=== PATIENT | female | born 1975 | race Caucasian/White ===

== ENCOUNTER → 2016-07-29 | Outpatient (CLI) | payer OTHER ==
[~2016-07-29] MED LIST: METH0.2T39 PO; MTRUNK; PRENTAB26 PO; TYLUNK
--- NOTE | 2016-07-29 16:36 | MAMMOGRAPHY REPORT ---
BILATERAL DIGITAL DIAGNOSTIC MAMMOGRAM TOMOSYNTHESIS WITH CAD AND TARGETED RIGHT ULTRASOUND: 07/29/19 17 CLINICAL HISTORY: 40-year-old woman with a family history of breast cancer = mother and aunts in the ir 30s and 40s who presents for annual bilateral screening mammography. Patient has history of 2 pr ior benign biopsies in the left breast. TECHNIQUE: Bilateral breast tomosynthesis in addition to standard 2D mammography was performed. Curr ent study was also evaluated with a Computer Aided Detection (CAD) system. COMPARISON: Comparison is made to exams dated: 03/26/2016 mammogram, 07/16/2015 mammogram, 5 ultrasound, 07/24/2014 ultrasound, and 07/24/2014 mammogram - [facility]. BREAST COMPOSITION: The tissue of both breasts is extremely dense, which lowers the sensitivity of mammography. FINDINGS: There are 2 stable ribbon shaped metallic biopsy markers in the left breast denoting the previous benign biopsies. No obvious new mass, architectural distortion or cluster of new suspiciou s calcifications are seen bilaterally. Repeat targeted ultrasound was performed in the 3:00, 8:00 and 10:00/10:30 axes of the right breast to reevaluate the probably benign complicated cysts versus benign solid masses. In the 8:00 right b reast, 1 cm from the nipple, there is a parallel hypoechoic lobulated solid versus cystic mass measu ring 2.5 x 1.8 x 3.6 mm. Previous measurements were 4.2 x 2.0 x 4.2 mm and this is slightly decreas ed in size. In the 10:30 right breast, 2 cm from the nipple, there are grouped cyst with thin inter nal nonvascular septations measuring approximately 9.3 x 3.2 x 27.4 mm in conglomerate. Another com plicated cyst with several internal nonvascular septations is seen in the 10:30 right breast, 1 cm f rom the nipple, measuring 9.8 x 3.1 x 11.3 mm. This is stable compared to the prior ultrasound. A small ovoid parallel isoechoic subdermal solid-appearing mass in the 3:00 right breast, 1 cm from th e nipple is again identified, measuring 3.8 x 1.6 x 3.5 mm. Previous measurements were 3.6 x 2.1 x 3.4 mm. This is considered unchanged given slight differences in technique. IMPRESSION: ACR-BI-RADS CATEGORY 3: PROBABLY BENIGN, TARGETED ULTRASOUND ACR-BI-RADS CATEGORY 3: MA OBABLY BENIGN 1. Stable mammographic appearance of the breasts, without mammographic evidence of malignancy. 2. Stable benign-appearing solid versus cystic masses in the 3:00 and 10:30 right breast, with a de creased benign-appearing probable cystic mass in the 8:00 right breast. 3. Given the strong family history of breast cancer, would continue with annual screening mammograp hy. Would also recommend interval screening with breast MRI. However, gadolinium is contraindicate d in and therefore as the patient is trying to become would continue whole breast screening ultrasound in the 6 month intervals between mammography for now. The patient will be due for screening ultrasound in 6 months and can reassess the benign-appearing solid versus cystic mass es in the 3:00 and 10:30 right breast at that time. These results and recommendations were discussed with the patient at the time of the exam. Approximately 10% of breast cancers are not detected with mammography. A negative mammographic repor t should not delay biopsy if a clinically suggestive mass is present. Raiza Grimm M.D. ay/:07/29/2016 15:13:13 Security Vehicle Patrol Officer: Petrona BLANCHARD)(Daisy), [facility] letter sent: Follow Up Recommended 3 BI-RADS Code: ACR-BI-RADS Category 3: Probably Benign Ultrasound BI-RADS: ACR-BI-RADS Category 3: P robably Benign
== END | disposition home or self-care (01) ==
LOC: C.MAMM 08:54
PROVIDERS: ATTEND Obstetrics & Gynecology
DX: N63 Unspecified lump in breast (principal)

== ENCOUNTER → 2016-09-24 | Outpatient (CLI) | payer OTHER | END | disposition home or self-care (01) | LOC: C.LAB1850 11:40 | PROVIDERS: ATTEND Obstetrics & Gynecology | DX: Z32.00 Encounter for pregnancy test, result unknown (principal) ==

== ENCOUNTER → 2016-09-26 | Outpatient (CLI) | payer OTHER | END | disposition home or self-care (01) | LOC: C.LAB1850 11:40 | PROVIDERS: ATTEND Obstetrics & Gynecology | DX: O09.299 Supervision of pregnancy with other poor reproductive or obstetric history, unspecified trimester (principal) ==

== ENCOUNTER → 2016-09-29 | Outpatient (CLI) | payer OTHER | END | disposition home or self-care (01) | LOC: C.LAB1850 10:36 | PROVIDERS: ATTEND Obstetrics & Gynecology | DX: O20.0 Threatened abortion (principal) ==

== ENCOUNTER → 2016-10-23 | Outpatient (CLI) | payer OTHER ==
[2016-10-23 19:06] LABS: URINE APPEARANCE CLEAR (CLEAR); URINE BILIRUBIN NEG (NEG); URINE COLOR YELLOW; URINE NITRITE NEG (NEG); URINE PH 6.5 (4.5-7.5); URINE SPECIFIC GRAVITY 1.018 (1.000-1.030); UROBILINOGEN NEG (NEG)
[2016-10-23 19:38] LABS: MANUAL MICROSCOPIC REQUIRED? NO; REVIEW REQ? NO
[2016-10-28 09:57] LABS: CHLAMYDIA TRACH RNA*** NOT DETECTED (NOT DETECTED); GC (NEIS GONORRHOEAE)RNA** NOT DETECTED (NOT DETECTED)
== END | disposition home or self-care (01) ==
LOC: C.LABSPEC 17:50
PROVIDERS: ATTEND Obstetrics & Gynecology
DX: O09.521 Supervision of elderly multigravida, first trimester (principal)

== ENCOUNTER → 2016-11-03 | Outpatient (CLI) | payer OTHER ==
[2016-11-03 12:37] LABS: BASO % 0.5 %; BASO ABS # 0.02 K/uL (0-0.2); COMPLETE YES; EOS % 0.5 %; HEMATOCRIT 42.3 % (37-47); IG% 0.2 %; LYMPH ABS # 0.52 K/uL (1.2-3.4); MEAN CELL VOLUME 83.9 fL (80-100); MEAN CORPUSCULAR HEMOGLOBIN 30.2 pg (25-34); MEAN CORPUSCULAR HGB CONC 35.9 g/dl (32-36); MONO % 5.5 %; NEUT % 81.3 %; PLATELET COUNT 227 K/uL (130-400); RED BLOOD COUNT 5.04 M/uL (4.2-5.4); WHITE BLOOD COUNT 4.33 K/uL (4.8-10.8)
[2016-11-03 14:05] LABS: THYROID STIMULATING HORMONE 0.509 uIu/ml (0.300-4.500)
== END | disposition home or self-care (01) ==
LOC: C.LAB1850 10:42
PROVIDERS: ATTEND Obstetrics & Gynecology
DX: E05.00 Thyrotoxicosis with diffuse goiter without thyrotoxic crisis or storm (principal); O09.521 Supervision of elderly multigravida, first trimester

== ENCOUNTER → 2016-12-16 | Outpatient (CLI) | payer OTHER ==
[2016-12-16 10:49] LABS: GTGD 50 Grams
== END | disposition home or self-care (01) ==
LOC: C.LAB1850 09:37
PROVIDERS: ATTEND Obstetrics & Gynecology
DX: O09.522 Supervision of elderly multigravida, second trimester (principal); Z3A.00 Weeks of gestation of pregnancy not specified

== ENCOUNTER → 2017-01-30 | Outpatient (CLI) | payer OTHER ==
--- NOTE | 2017-02-03 12:39 | MAMMOGRAPHY REPORT ---
ULTRASOUND OF BOTH BREASTS: 01/30/2017 CLINICAL HISTORY: The patient presents for follow-up of benign-appearing masses in the right breast, as well as screening bilateral whole breast ultrasound. Strong family history of breast cancer. The patient did test negative for the BRCA2 gene. She is currently 22 weeks . She denies any n ew palpable lumps or other complaints. COMPARISON: Comparison is made to exams dated: 07/29/2016 ultrasound, 07/29/2016 mammogram, 03/26/2016 ultrasound biopsy, 03/26/2016 mammogram, 03/24/2016 ultrasound, and 07/16/2015 mammogram - [facility]. TECHNIQUE: Real-time ultrasound of both breasts was performed. FINDINGS: Real-time, high-resolution ultrasound was performed of the lateral breast including all 4 quadrants and subareolar regions. Numerous anechoic circumscribed masses are seen throughout both br easts, consistent with cysts. In the left breast at 6:00, 2 cm from the nipple, again noted is a cir cumscribed hypoechoic solid mass which has an echogenic biopsy marker clip within it, consistent with biopsy-proven fibroadenoma. The mass currently measures 12 x 10 x 11 mm, and is not significantly c hanged compared to the March 2016 exam when accounting for differences in measurement technique, wh ere the mass previously measured 12 x 8 x 10 mm. In the right breast at 3:00, 1 cm from the nipple, again noted is an oval circumscribed hypoechoic mass, which measures 3 x 3 mm and is stable in size c ompared to the March 2016 exam and most compatible with a cyst. In the right breast at 10:30, 1 cm from the nipple, again noted is an oval circumscribed anechoic mass with several internal septations measuring 11 x 4 x 9 mm, not significantly changed and consistent with a complicated cyst. In the r ight breast at 10:00, 2 cm from the nipple, there are multiple adjacent cysts with thin internal sept ations, the largest measuring 12 x 9 x 18 mm. No new or suspicious solid masses were noted within ei ther breast on ultrasound. IMPRESSION: ACR BI-RADS CATEGORY 2: BENIGN Numerous benign cysts bilaterally. Stable benign-appearing masses in the right 3:00 and 10:30 breast , consistent with cysts. There is no sonographic evidence of malignancy. Recommend follow-up in one year; annual screening mammography in addition to annual screening MRI is recommended given the stron g family history of breast cancer. However, the patient will likely be breast-feeding at that time w hich will likely significantly decrease the sensitivity of breast MRI. Therefore, consider screening bilateral whole breast ultrasound in one year, with return to annual screening MRI when the patient discontinues breast-feeding. The patient was verbally notified of the results. Claudia Cameron M.D. ah/:01/30/2017 17:04:57 Attending Technologist: Marilee Raman RT(R)(M), [facility] Slide Forming Machine Operator: Claudia Cameron MD, [facility] letter sent: Normal 1/2 BI-RADS Code: ACR BI-RADS Category 2: Benign
== END | disposition home or self-care (01) ==
LOC: C.MAMM 09:22
PROVIDERS: ATTEND Obstetrics & Gynecology
DX: N60.01 Solitary cyst of right breast (principal); Z80.3 Family history of malignant neoplasm of breast

== ENCOUNTER → 2017-03-11 | Outpatient (CLI) | payer OTHER ==
[2017-03-11 13:03] LABS: HEMATOCRIT 33.2 % (37-47)
[2017-03-11 14:22] LABS: GTGD 50 Grams
[2017-03-11 16:53] LABS: URINE APPEARANCE CLOUDY (CLEAR); URINE BILIRUBIN NEG (NEG); URINE COLOR YELLOW; URINE EPITHELIAL CELL AUTO 20-30 /lpf (0-5); URINE NITRITE NEG (NEG); URINE SPECIFIC GRAVITY 1.017 (1.000-1.030); UROBILINOGEN NEG (NEG)
[2017-03-11 16:54] LABS: MANUAL MICROSCOPIC REQUIRED? NO; REVIEW REQ? NO
== END | disposition home or self-care (01) ==
LOC: C.LAB1850 11:28
PROVIDERS: ATTEND Obstetrics & Gynecology
DX: O09.523 Supervision of elderly multigravida, third trimester (principal)

== ENCOUNTER → 2017-03-25 | Outpatient (CLI) | payer OTHER | END | disposition home or self-care (01) | LOC: C.LAB1850 11:07 | PROVIDERS: ATTEND Obstetrics & Gynecology | DX: O09.523 Supervision of elderly multigravida, third trimester (principal); Z3A.00 Weeks of gestation of pregnancy not specified ==

== ENCOUNTER → 2017-04-21 | Outpatient (CLI) | payer OTHER | END | disposition home or self-care (01) | LOC: C.LAB1850 11:54 | PROVIDERS: ATTEND Obstetrics & Gynecology | DX: Z22.330 Carrier of Group B streptococcus (principal) ==

== ENCOUNTER 2017-05-24 22:16 | Inpatient (IN) | payer OTHER ==
[~2017-05-24] VITALS: Ht 162.6 cm; Wt 65.8 kg
[2017-05-24] MEDS ORDERED: LACTATED RINGER'S 1000ML 1,000 ML IV PRN (22:35)
[2017-05-24] MEDS ORDERED: LACTATED RINGER'S 1000ML 1,000 ML IV SCH (22:35)
[2017-05-24] MEDS ORDERED: PENICILLIN G POTASSIUM IV 6 MU in DEXTROSE 5% 250ML 250 ML IV ONE (22:45)
[2017-05-24 23:00] LABS: HEMATOCRIT 36.9 % (37-47); MEAN CELL VOLUME 88.7 fL (80-100); MEAN CORPUSCULAR HEMOGLOBIN 31.3 pg (25-34); MEAN CORPUSCULAR HGB CONC 35.2 g/dl (32-36); MEAN PLATELET VOLUME 10.2 fL (7.4-10.4); PLATELET COUNT 158 K/uL (130-400); RED BLOOD COUNT 4.16 M/uL (4.2-5.4); WHITE BLOOD COUNT 4.44 K/uL (4.8-10.8)
[2017-05-24 23:06] VITALS: Ht 162.6 cm; Wt 65.8 kg
[2017-05-25] MEDS ORDERED: EpHEDrine SULFATE INJ 50 MG/ML AMP ONE (01:04)
[2017-05-25] MEDS ORDERED: BUPIVACAINE 0.25% 30 ML VIAL ONE (01:04)
[2017-05-25] MEDS ORDERED: FENTANYL CITRATE INJ 50 MCG/1 ML 2 ML VIAL ONE ×2 (01:05→06:00)
[2017-05-25] MEDS ORDERED: FENTANYL 2MCG/ML ROPIV 1.25MG/ML 100ML BAG EPI ONE (01:05)
[2017-05-25] MEDS ORDERED: LACTATED RINGER'S 1000ML 500 ML IV PRN ×2 (01:28→03:07)
[2017-05-25] MEDS ORDERED: OXYTOCIN 30 UNITS/500ML NSS IV PRN ×2 (01:30→07:15)
[2017-05-25] MEDS: PENICILLIN G POTASSIUM IV 3 MU in DEXTROSE 5% 100ML 100 ML IV PRN ×2 (02:42→06:26)
[2017-05-25] MEDS ORDERED: NALOXONE HCL INJ 1 MG in SODIUM CHLORIDE 0.9% 1000ML 1,000 ML IV PRN (03:07)
[2017-05-25] MEDS ORDERED: ONDANSETRON INJ 2 MG/ML 2 ML VIAL IV PRN (03:15)
[2017-05-25] MEDS ORDERED: FENTANYL 2MCG/ML ROPIV 1.25MG/ML 100ML BAG EPI PRN ×2 (03:15→06:00)
[2017-05-25] MEDS ORDERED: DiphenhydrAMINE HCL 50 MG/ML VIAL IV PRN (03:15)
[2017-05-25] MEDS ORDERED: NALOXONE HCL INJ 0.4 MG/1 ML VIAL/CARP IV PRN (03:15)
[2017-05-25] MEDS ORDERED: NALBUPHINE HCL INJ 10 MG/ML AMP IV PRN (03:15)
[2017-05-25] MEDS ORDERED: EpHEDrine SULFATE INJ 50 MG/ML AMP IV PRN (03:15)
[2017-05-25] MEDS ORDERED: PROMETHAZINE HCL INJ 25 MG in SODIUM CHLORIDE 0.9% 50ML 50 ML IV PRN (03:15)
[2017-05-25] MEDS ORDERED: LIDOCAINE/EPINEPHRINE 2% 1:200,000 20 ML SDV ONE (03:17)
--- NOTE | 2017-05-25 07:04 | Vaginal Delivery Summary ---
Vaginal Delivery Summary The patient dilated to complete and pushed to deliver a viable female infant Apgars 8 and 9 via over small second-degree perineal laceration. Mouth and nose bulb suctioned at the perineum. Loose nuchal cord 1 reduced. Shoulders and body delivered with ease. vigorous and cried at . Cord clamped at 30 seconds of life. Infant then to maternal abdomen. Cord then doubly clamped and cut. Placenta delivered spontaneously and intact 3 vessel cord. Cord blood had been obtained. Hemostasis achieved with dilute Pitocin and uterine massage. Cervix and sulci intact. Laceration repaired in usual fashion using 3-0 Vicryl. Bladder drained under sterile conditions for 25 cc's. Mother and baby stable in recovery. EBL 300 cc's.
--- NOTE | 2017-05-25 07:06 | Anesthesia Procedure Note ---
Anesthesia Epidural Removal Nt Date & Time May 25, 2017 at 07:05 Vital Signs Pain Intensity: 5.0 Notes Mental Status: alert / awake / arousable, participated in evaluation Nausea / Vomiting: adequately controlled Pain: adequately controlled Airway Patency, RR, SpO2: stable & adequate BP & HR: stable & adequate Hydration State: stable & adequate Neuraxial Anesthesia: was administered, sensory block is resolving Anesthetic Complications: no major complications apparent, pt satisfied with anesthetic care Epidural: removed without complications, with tip intact Notes: Both epidurals pulled with tip intact. No apparent complications.
[2017-05-25] MEDS ORDERED: BENZOCAINE 20% AER SPR 82.5 GM CAN EXT PRN (07:15)
[2017-05-25] MEDS ORDERED: DIPHTHERIA/TETANUS/PERTUSSIS 0.5 ML SYR/VIAL IM. ONE (07:15)
[2017-05-25] MEDS ORDERED: SUPERCREAM 0.870 % 15GM JAR EXT PRN (07:15)
[2017-05-25] MEDS ORDERED: ACETAMINOPHEN 325 MG TAB PO PRN (07:15)
[2017-05-25] MEDS ORDERED: HYDROCORTISONE ACETATE 25 MG SUPP PR PRN (07:15)
[2017-05-25] MEDS ORDERED: LANOLIN OINT EXT PRN ×2 (07:15)
[2017-05-25] MEDS ORDERED: OXYTOCIN INJ 20 UNITS in LACTATED RINGER'S 1000ML 1,000 ML IV SCH (07:15)
[2017-05-25] MEDS ORDERED: OXYCODONE/ACETAMINOPHEN 5-325 TAB PO PRN (07:15)
[2017-05-25] MEDS: IBUPROFEN 600 MG TAB PO PRN ×2 (07:56→13:26)
[2017-05-25] MEDS: DOCUSATE SODIUM 100 MG CAP PO SCH ×2 (08:00→19:42)
[2017-05-25 13:40] VITALS: BP 102/72; PULSE 87; TEMP 36.8
[2017-05-25 16:00] VITALS: BP 115/78; PULSE 81; TEMP 36.6
[2017-05-25 20:37] VITALS: BP 117/77; PULSE 81; TEMP 36.6
[2017-05-25 23:10] VITALS: BP 94/59; PULSE 57; TEMP 36.7
[2017-05-26 03:00] VITALS: BP 116/79; PULSE 80; TEMP 36.9
[2017-05-26 07:15] VITALS: BP 104/67; PULSE 70; TEMP 36.7; O2SAT 97
--- NOTE | 2017-05-26 07:28 | Progress Note ---
Subjective May 26, 2017. Subjective conversation w/ patient, physical exam Ambulation: ambulating normally Voiding: no voiding problems Passing Gas: Yes Diet Tolerance: Regular Diet Lochia: Small Feeding Type: Breast Feeding Pain: controlled with motrin Review of Systems Breast: No see HPI, No breast lump, No change in shape, No nipple discharge, No breast pain, No problem reported Female : No see HPI, No dysuria, No urinary frequency, No hematuria, No incontinence, No abnormal vaginal bleeding, No vaginal discharge, No problem reported Objective Vital Signs Date Time Temp Pulse Resp B/P (MAP) Pulse Ox O2 Delivery O2 Flow Rate FiO2 05/26/17 03:00 36.9 80 20 116/79 (91) Room Air 05/25/17 23:10 Room Air 05/25/17 23:10 36.7 57 18 94/59 (71) Room Air 05/25/17 20:37 36.6 81 20 117/77 (90) Room Air 05/25/17 16:00 36.6 81 16 115/78 (90) Room Air 05/25/17 16:00 Room Air 05/25/17 13:40 36.8 87 18 102/72 (82) Room Air 05/25/17 13:40 Room Air Physical Exam General Appearance: WELL-APPEARING, NO APPARENT DISTRESS Abdomen: non tender, soft Fundus: Firm, Non-Tender, Relation to Umbilicus (at U) Extremities: non-tender Assessment and Plan Day#: 1 Continue Routine Care: stable course GBS(+) continue care plan
--- NOTE | 2017-05-26 07:38 | Discharge Instructions ---
Discharge Instructions Date of Service May 26, 2017. Admission Reason for Admission: Iup,Check Ruptured Membranes Discharge Discharge Diagnosis / Problem: recovery from Discharge Goals Goal(s): Routine recovery after delivery Medications Continue Dispensed Medications: supercream, dermaplast, tucks, lansinoh Activity Recommendations Activity Limitations: per Instructions/Follow-up section . Instructions / Follow-Up Instructions / Follow-Up ACTIVITY RECOMMENDATIONS: * Gradual return to full activity over the next 2-3 weeks. * No lifting - nothing heavier than baby over the next 2-3 weeks. * Do not engage in vigorous exercise, sexual activity or sports until cleared by your physician. * Do not drive or operate any motorized equipment until cleared by your physician. * You may shower/bathe daily. MEDICATIONS: For discomfort or pain, you may use Acetaminophen (Tylenol), Ibuprofen (Advil), or Naproxen (Aleve) following the package directions. For constipation you may use Colace following the package directions. BREAST CARE: If you are not breast feeding: * Wear a supportive bra 24 hours a day for one to two weeks. * Avoid stimulating your breasts and nipples as much as possible during the first few weeks after delivery. * When taking a shower, have the warm water hit your back, not breasts. * When your breasts feel full, apply ice packs. Usually three to four times a day helps ease the discomfort. * Take a mild pain medication (Tylenol / Motrin) when you are uncomfortable. If breast feeding: * Use breast milk to lubricate nipples. Lansinoh cream may be used for sore nipples. You do not need to remove cream prior to breast feeding. If using a different brand of cream, check the label for directions regarding removal of cream prior to nursing. * Wear a supportive bra. * If having problems with breasts or breast feeding, call a campaign consultant or your health care provider. EPISIOTOMY CARE: After delivery, if you have an episiotomy (stitches), the following steps will ease discomfort and aid healing. * For the first 24 hours after delivery, place ice packs next to your episiotomy to help reduce swelling. * After the first 24 hour-period, sitz baths, either portable or in the tub, are suggested. A shower with a shower arm sprayed over the episiotomy may be comforting. * Denisa care should be done after each voiding and bowel movement. Squirt warm water from a plastic bottle over the perineum (region of the body between the anus and urinary opening) and pat dry. * Use Dermoplast to ease discomfort. Shake container. Crapo directly over the episiotomy. Place a Tucks on a clean sanitary pad next to your episiotomy. SPECIAL CARE INSTRUCTIONS: When you are discharged from the hospital, it is important for you to follow the instructions listed below: * During the first week at home, you should be able to care for yourself and your baby. In addition, the usual light household activities are encouraged. * Limit your activities to the way you feel. Do not try to clean the house or move furniture. Be sensible. * If you actively engage in sports and have done so up until the time of your delivery, you may resume these activities as soon as you feel able. This may take up to one month or even longer. Use good judgment. * Continue to take your vitamins for at least six weeks after the of your baby. * Your diet need not be limited unless you were on a special diet before your delivery. Breast-feeding mothers need around 2500 calories per day and at least 64-80 ounces of fluid per day (8 to 10 glasses). * You should eat foods from the four major food groups. Crash diets or fad diets are to be avoided. Eating lean meats, fresh fruits and vegetables, low-fat dairy products, high fiber foods and a regular exercise program, will help you get back to your pre- weight without putting your health at risk. * Constipation is sometimes a problem after delivery. Take a mild laxative as needed. If breast feeding, Milk of Magnesia is acceptable to use. You may use a suppository or Fleets enema if no episiotomy. * A daily shower or tub bath is suggested. Be sure to thoroughly and gently dry the perineum. * A bloody vaginal discharge will usually continue until around four weeks post . A small amount of bleeding may continue for as long as six weeks. Vaginal discharge changes from the bright red bleeding after delivery to pink then brownish and finally yellowish-pink before becoming white and disappearing. * Bleeding may increase with activity. Your first period may come in 4-8 weeks. If you are breast feeding, your period may be delayed even longer. * [place] (sex) can begin whenever both you and your partner feel comfortable and do not have any form of genital infection. It is recommended that you wait at least six weeks for internal and external healing to occur. If you have questions, please talk to your health care practitioner. A condom should be used to prevent infection and . * Foreplay, gentle intercourse and lubrication is very important the first several times to prevent pain. A water-based lubricant such as K-Y jelly or Astroglide may be used. * If you have RH negative blood and your baby is RH positive, you will receive RHOGAM by injection prior to discharge. The nurse will give you a card to keep with you that has the date and place that you received RHOGAM after delivery. * During your care, you had a Rubella screen done to check for the presence of rubella antibodies in your blood. If your test was negative, you will receive a Rubella vaccine prior to discharge. This vaccine may cause a fever, soreness at the injection site and flu-like symptoms. If these symptoms persist, notify your health care practitioner. is not advised for one month after a Rubella vaccine. * Verbalizes understanding of car seat law as reviewed with patient nursing. * Car Seat hand-out given and reviewed with patient by nursing. * Shaken baby information reviewed with patient by nursing. Call you doctor if: * Heavy bleeding (saturating several pads an hour) or passing clots the size of your fist. * A fever >101 degrees F (38.3 degrees C) on two occasions four hours apart and /or chills. * Unusual pain in the pelvic or vaginal areas. * "Baby Blues" lasting longer than two weeks. If you have any questions or concerns, call your health care practitioner at . FOLLOW UP VISIT: * Please call the office at to schedule a 6 week examination. It is important you keep this appointment. It is important for you to make arrangements for either yearly or twice yearly check-ups thereafter. Current Hospital Diet Patient's current hospital diet: Regular OB Diet Discharge Diet Recommended Diet: Regular OB Diet Pending Studies Studies pending at discharge: no Medical Emergencies . Who to Call and When: Medical Emergencies: If at any time you feel your situation is an emergency, please call 911 immediately. . Non-Emergent Contact Non-Emergency issues call your: [employer] . . "Provider Documentation" section prepared by Crys Mejia. . VTE Core Measure Inpt VTE Proph given/why not?: Treatment not indicated
[2017-05-26] MEDS: DOCUSATE SODIUM 100 MG CAP PO SCH ×2 (08:23→19:52)
[2017-05-26 13:15] VITALS: BP 108/66; PULSE 90; TEMP 36.5
[2017-05-26] MEDS: IBUPROFEN 600 MG TAB PO PRN (15:13)
[2017-05-26 15:15] VITALS: BP 110/71; PULSE 78; TEMP 36.7
[2017-05-26 23:50] VITALS: BP 112/73; PULSE 76; TEMP 36.5
--- NOTE | 2017-05-27 06:46 | OB/GYN Progress Note ---
[employer] Progress Note Date of Service May 27, 2017. Subjective conversation w/ patient, physical exam, chart review Ambulation: ambulating normally Voiding: no voiding problems Passing Gas: Yes Diet Tolerance: Regular Diet Lochia: Small Feeding Type: Breast Feeding Review of Systems Constitutional: + fatigue, No fever, No chills, No sweats Respiratory: No cough, No wheezing, No shortness of breath Cardiac: No chest pain, No edema Breast: + breast pain Abdomen: No pain, No nausea, No vomiting, No diarrhea Female : No dysuria, No urinary frequency Objective Vital Signs Date Time Temp Pulse Resp B/P (MAP) Pulse Ox O2 Delivery O2 Flow Rate FiO2 05/26/17 23:50 Room Air 05/26/17 23:50 36.5 76 18 112/73 (86) Room Air 05/26/17 15:15 Room Air 05/26/17 15:15 36.7 78 16 110/71 (84) Room Air 05/26/17 13:15 36.5 90 18 108/66 (80) 05/26/17 07:40 Room Air 05/26/17 07:15 36.7 70 20 104/67 (79) 97 Room Air Physical Exam General Appearance: WELL-APPEARING, WD/WN, NO APPARENT DISTRESS Respiratory/Chest: chest non-tender, lungs clear, normal breath sounds, no respiratory distress, no accessory muscle use Cardiovascular: regular rate, rhythm, no edema, no gallop Abdomen: normal bowel sounds, non tender, soft, no organomegaly Fundus: Firm, Relation to Umbilicus (one digit below ) Extremities: no pedal edema, no calf tenderness Medications Current Inpatient Medications Medications (Trade) Dose Ordered Sig/Dheeraj Route Start Time Stop Time Status Last Admin Dose Admin Oxytocin (Pitocin IV) 30 units UD PRN IV 05/25/17 07:15 06/24/17 07:14 Benzocaine (Dermoplast Aero Spr) 1 appln PRN PRN EXT 05/25/17 07:15 06/24/17 07:14 05/25/17 16:05 82.5 APPLN Cocaine HCl (Supercream 0.870% Cr) BID PRN EXT 05/25/17 07:15 06/08/17 07:14 Hydrocortisone Acetate (Anusol Hc Supp) 25 mg BID PRN VT 05/25/17 07:15 06/24/17 07:14 Lanolin (Lanolin Oint) PRN PRN EXT 05/25/17 07:15 06/24/17 07:14 Ibuprofen (Motrin Tab) 600 mg Q4H PRN PO 05/25/17 07:15 06/24/17 07:14 05/26/17 15:13 600 MG Acetaminophen (Tylenol Tab) 650 mg Q6H PRN PO 05/25/17 07:15 06/24/17 07:14 Oxycodone/ Acetaminophen (Percocet 5-325mg Tab) 1 tab Q4H PRN PO 05/25/17 07:15 06/08/17 07:14 Docusate Sodium (coLACE CAP) 100 mg BID PO 05/25/17 08:00 06/24/17 07:59 05/26/17 19:52 100 MG Assessment and Plan Continue Routine Care: 41 now 6, female delivered vaginally on 05/25 0647 GBS+/A+/RI. Vital reviewed and WNL. HGB 13 on admission, EBL of 300 cc at delivery. No signs or symptoms of anemia today. Patient is doing well clinically. Continue routine care; monitor lochia, control pain with Tylenol/ibuprofen, encourage ambulation. Resident Physician Supervision Note: I interviewed and examined the patient. Discussed with Dr. Green and agree with findings and plan as documented in the note. Any exceptions or clarifications are listed here: Patient ready for d/c. Instructions given, f/u in 6 weeks for pp check Documented By: Marv Talavera
[2017-05-27 08:00] VITALS: BP 116/78; PULSE 77; TEMP 36.6; O2SAT 97
[2017-05-27] MEDS: DOCUSATE SODIUM 100 MG CAP PO SCH (08:04)
[2017-05-27 11:45] VITALS: BP_DIAS 78; PULSE 77; TEMP 36.6
== END 2017-05-27 11:45 | disposition home or self-care (01) | DRG 775 ==
LOC: C.OPB 22:16 → C.LD 22:16 → C.OPB 22:36 → C.OBG 05-25 13:33 → EDSTATUS 06-01 22:15
PROVIDERS: ADMIT Obstetrics & Gynecology; ATTEND Obstetrics & Gynecology
PROC: 0KQM0ZZ Repair Perineum Muscle, Open Approach (ICD-10-PCS; principal; 2017-05-25)
PROC: 10E0XZZ Delivery of Products of Conception, External Approach (ICD-10-PCS; principal; 2017-05-25)
DX: O99.284 Endocrine, nutritional and metabolic diseases complicating childbirth (principal); O99.824 Streptococcus B carrier state complicating childbirth; O69.81X0 Labor and delivery complicated by cord around neck, without compression, not applicable or unspecified; O70.1 Second degree perineal laceration during delivery; O09.523 Supervision of elderly multigravida, third trimester; E05.00 Thyrotoxicosis with diffuse goiter without thyrotoxic crisis or storm; Z3A.38 38 weeks gestation of pregnancy; Z37.0 Single live birth

== ENCOUNTER 2023-08-02 05:02 | Observation (INO) ==
--- NOTE | 2023-08-02 06:39 | Emergency Department Note ---
Impression & Plan Pneumothorax, Interstitial lung disease, Pneumonia ED Provider Note NAME: JEREMY JOSE AGE: 47 SEX: F : 1975 ARRIVES VIA: Walk-In INFORMANT: Patient ED PROVIDER(S): Kushal Klein DO CHIEF COMPLAINT: Left upper chest wall pain HPI: Patient is a 47-year-old female with a past medical history of interstitial lung disease and a PTX who presents the ER for left upper chest/back pain. She notes last time this occurred she felt like she had a pneumothorax. She has had 1 before. She had one about 3 months ago. She denies any headache or change in vision. 2 weeks ago she had some cough congestion and strep. She was treated with antibiotics. She notes certain positions the pain will go away but is worse with laying down or taking a deep breath. Pain started yesterday. Denies any belly pain, nausea, vomiting, or diarrhea. No dysuria, urgency, or frequency. No other exacerbating or remitting factors. ADDITIONAL HISTORY OBTAINED: Per HPI Chronic Medical/Social Conditions Affecting Care: Per HPI PAST MEDICAL HISTORY:See Below PAST SURGICAL HISTORY:See Below FAMILY HISTORY:See Below SOCIAL HISTORY:See Below HOME MEDICATIONS:See Below ALLERGIES:See Below VITALS:See Below PHYSICAL EXAMINATION: GENERAL: Sitting up in bed, alert, well appearing, well nourished, no distress, non-toxic EYE EXAM: normal conjunctiva. PERRL and EOM's grossly intact. OROPHARYNX: mucous membranes are moist NECK: supple, no nuchal rigidity, no adenopathy, non-tender LUNGS: Clear to auscultation. Normal chest wall mechanics HEART: no murmurs, S1 normal and S2 normal ABDOMEN: abdomen soft, non-tender, normo-active bowel sounds, no masses, no rebound or guarding. UPPER EXTREMITIES: upper extremities are grossly normal. LOWER EXTREMITIES: No pitting edema. Clear bilaterally NEURO EXAM: Normal sensorium, cranial nerves II-XII grossly intact, normal speech, no gross weakness of arms, no gross weakness of legs. MEDICAL DECISION MAKING: Patient is a 47-year-old female with a past medical history of Graves' disease and pneumothorax and as well as interstitial lung disease that presents the ER for left-sided chest pain. IV was established blood work was obtained. 1 view of the chest suggest a right-sided pneumothorax per my interpretation. Labs show no significant leukocytosis or anemia. BMP along LFTs bilirubin was unremarkable. Troponin was negative. Pro-Jax normal. Viral panel was negative. Chest x-ray also had infiltrates. She was given IV Rocephin and azithromycin. Discussed case with pulmonology and she was placed on nonrebreather. Discussed case with the hospitalist patient was admitted for further workup to Dr. Garcia service. Will hold on chest tube at this time per discussion with pulmonology. Consults/Care Managements Discussions: Per [facility] Triage Nursing notes reviewed. Limited review of prior medical records performed Vital Signs: reviewed and remarkable for no significant abnormalities Differential diagnosis: Cardiac ischemia, aortic dissection, pulmonary embolism, pneumothorax, pneumonia, pericarditis, myocarditis, esophageal rupture, GERD, cholecystitis, pancreatitis, musculoskeletal, as well as other pathologies. ER treatment provided: See below Diagnostics interpreted by me include EKG and cardiac monitoring as listed below: -Cardiac Monitoring: An order was placed for continuous cardiac monitoring. The monitor shows a rate of 90 with sinus rhythm. -ECG: Sinus rhythm rate of 90 Normal axis No PVCs QTc 452 -Laboratory studies:Interpreted by me as stated above in MDM and shown below. Imaging studies: Xrays: As interpreted by me: Portable AP upright 1 view of the chest shows right-sided pneumothorax with pulmonary infiltrates CTs show: Right-sided pneumothorax with pulmonary infiltrates and interstitial lung disease per radiology Procedures:none Critical Care: I have personally spent 32 minutes of critical care time in the direct management of this patient. This includes bedside care, interpretation of diagnostic studies, and testing, discussion with consultants, patient, and family members, and other required patient management activities. This 32 minutes is in excess of all separately billable procedures. Past Med/Surg History Medical History (Updated 08/02/23 @ 12:22 by Kushal Klein DO) History of COVID-19 06/2021, tested at [facility], not hosp; mild cold symptoms w/fever for 1 day>resolved. BRCA gene mutation negative Ulcerative proctitis hx Graves disease Fibroadenoma of left breast Surgical History H/O right breast biopsy (11/11/22) Needle localization right breast biopsy x2. Dr. Rolle H/O colonoscopy S/P dilation and curettage History of breast biopsy History of colposcopy [place] teeth extracted Family History Mother Breast cancer Aunt Breast cancer Ovarian cancer Family/Other BRCA gene mutation positive Denies family history of Colorectal cancer Uterine cancer Social History (Updated 04/29/23 @ 10:50 by Odessa Walters RN) Smoking Status: Former smoker Tobacco Type: Cigarettes Age Started Using Tobacco: 18; Age Quit Using Tobacco: 24; Cigarettes Per Day: only socially- 5 cigarettes daily then; Second Hand Exposure: Yes (hx-growing up); Do You Dip or Chew Tobacco: No; Hx Alcohol Use: Yes Alcohol type: beer Alcohol Intake Frequency: 2-4 x/Month Hx Substance Use: No Preferred Language: Chadian Communication Ability: Effective Director Veterinary Required: No Beliefs That Will Affect Care: None marital status: Current Living Situation: Spouse and Family current occupational status: unemployed current occupation: [employer] How many Children do You have: 4 Feels Safe at Home: Yes Diet: regular during the past year weight has: remained stable Assistive Devices: Glasses Allergies Allergies Allergy/AdvReac Type Severity Reaction Status Date / Time No Known Allergies Allergy Verified 07/28/23 09:57 Home Meds Home Medications Medication Instructions Recorded Confirmed methimazole 5 mg tablet 5 mg PO DIRECTED 12/11/22 08/02/23 metoprolol succinate 25 mg 25 mg PO DIRECTED PRN heart rate 04/22/23 08/02/23 tablet,extended release 24 hr Results & Data (ED) Vital Signs Vital Signs - 24 hr 08/02/23 05:06 08/02/23 07:19 08/02/23 07:21 Temperature 36.5 C Temperature Source Oral Pulse Rate 98 H 73 Pulse Rate [Apical] 77 Respiratory Rate 18 18 17 Respiratory Effort / Characteristics Non-Labored Spontaneous Non-Labored Respiratory Depth Normal Normal Respiratory Pattern Blood Pressure 125/86 Blood Pressure [Right Arm] 123/80 Blood Pressure Mean 99 Blood Pressure Mean [Right Arm] 94 Pulse Oximetry 96 98 98 Oxygen Delivery Method Room Air Room Air Room Air Oxygen Flow Rate Sepsis Recent Fever Within 48 Hours No Sepsis New/Unexplained Change in Mental Status N/A Sepsis Action Taken by Nursing No Action Required 08/02/23 07:48 08/02/23 08:10 08/02/23 08:18 Temperature Temperature Source Pulse Rate 71 Pulse Rate [Apical] 84 Respiratory Rate 18 Respiratory Effort / Characteristics Respiratory Depth Normal Respiratory Pattern Regular Blood Pressure Blood Pressure [Right Arm] 134/84 Blood Pressure Mean Blood Pressure Mean [Right Arm] 100 Pulse Oximetry 100 100 Oxygen Delivery Method Non-rebreather Non-rebreather Oxygen Flow Rate 15 15 Sepsis Recent Fever Within 48 Hours Sepsis New/Unexplained Change in Mental Status Sepsis Action Taken by Nursing 08/02/23 11:31 08/02/23 12:10 Temperature Temperature Source Pulse Rate 78 Pulse Rate [Apical] 76 Respiratory Rate 21 Respiratory Effort / Characteristics Non-Labored Respiratory Depth Normal Respiratory Pattern Regular Blood Pressure Blood Pressure [Right Arm] 121/71 Blood Pressure Mean Blood Pressure Mean [Right Arm] 87 Pulse Oximetry 100 Oxygen Delivery Method Non-rebreather Oxygen Flow Rate 15 Sepsis Recent Fever Within 48 Hours Sepsis New/Unexplained Change in Mental Status Sepsis Action Taken by Nursing Laboratory Data 08/02/23 07:13 08/02/23 07:13 Lab Results 08/02/23 08/02/23 Range/Units 07:13 07:15 WBC 5.16 (4.8-10.8) K/ul RBC 5.18 (4.20-5.40) M/uL Hgb 13.6 (12.0-16.0) g/dl Hct 42.0 (37.0-47.0) % MCV 81.1 (80.0-100.0) fL MCH 26.3 (25.0-34.0) pg MCHC 32.4 (32.0-36.0) g/dL RDW Std Deviation 46.8 H (36.4-46.3) fL RDW Coeff of Jose Cruz 15.8 H (11.5-14.5) % Plt Count 560 H (130-400) K/uL MPV 8.9 L (9.4-12.4) fL Immature Gran % (Auto) 0.4 % Neut % (Auto) 76.1 % Lymph % (Auto) 13.4 % Carver % (Auto) 8.9 % Eos % (Auto) 0.0 % Baso % (Auto) 1.2 % Neut # (Auto) 3.93 (1.40-6.50) K/uL Lymph # (Auto) 0.69 L (1.20-3.40) K/uL Carver # (Auto) 0.46 (0.11-0.59) K/uL Eos # (Auto) 0.00 (0.00-0.50) K/uL Baso # (Auto) 0.06 (0.00-0.20) K/uL Immature Gran # (Auto) 0.02 (0.01-0.20) K/uL Sodium 139 (136-145) mmol/L Potassium 4.1 (3.5-5.1) mmol/L Chloride 104 (98-107) mmol/L Carbon Dioxide 30 (21-32) mmol/L Anion Gap 5 (3-11) BUN 16 (6-23) mg/dl Creatinine 0.62 (0.6-1.2) mg/dl Est Cr Clr Drug Dosing 88.5 ml/min Est GFR ( Amer) 126.2 ml/min Est GFR (Non-Af Amer) 108.9 ml/min BUN/Creatinine Ratio 25.8 H (10-20) Glucose 94 (70-99(Fasting)) mg/dl Calcium 9.1 (8.6-10.3) mg/dl Total Bilirubin 0.6 (0.2-1.0) mg/dl AST 13 (13-39) U/L ALT 10 (7-52) U/L Alkaline Phosphatase 73 (34-104) U/L Troponin I High Sens 3.4 (0-14) pg/ml Total Protein 7.5 (6.0-8.3) gm/dl Albumin 4.1 (3.4-5.0) gm/dl Globulin 3.4 (2.5-4.0) gm/dl Albumin/Globulin Ratio 1.2 (0.9-2) Lipase 18 (11-82) U/L Procalcitonin < 0.02 (0-0.5) ng/ml SARS-CoV-2 (PCR) NEGATIVE (Negative) Influenza Type A (PCR) Negative (Neg) Influenza Type B (PCR) Negative (Neg) RSV (RT-PCR) Negative (Neg) Administered Medications Discontinued Medications Ceftriaxone Sodium (Rocephin) 2,000 mg in 50 mls @ 100 mls/hr IV NOW STA Stop: 08/02/23 08:22 Last Infusion: 08/02/23 08:47 Dose: Infused Documented By: Admin: 08/02/23 08:12 Dose: 100 mls/hr Documented By: AYSHA Azithromycin 500 mg/ Dextrose 255 mls @ 127.5 mls/hr IV NOW STA Stop: 08/02/23 09:52 Last Infusion: 08/02/23 11:16 Dose: Infused Documented By: Admin: 08/02/23 08:15 Dose: 127.5 mls/hr Documented By: AYSHA Imaging Data Radiologist's Impression: Chest X-Ray 08/02/23 05:12 XR chest 1V not portable HISTORY: 47 years-old Female similar feelings of when she had spont pneumo acute pain of the mid back and left shoulder COMPARISON: Chest radiograph 04/30/2023, chest CT 08/02/2023 and 04/22/2023 TECHNIQUE: AP view of the chest FINDINGS: Chr interstitial lung disease with reticular interstitial fibrosis, bronchiectasis, architectural distortion with superior hilar elevation. Additionally, there are new mild patchy nodular consolidative opacities in the lungs, most pronounced in the lung bases. There is a small right-sided pneumothorax with apical pleural separation of 1.8 cm. Bones appear grossly intact. IMPRESSION: 1. Small right-sided pneumothorax with apical pleural separation of 1.8 cm. 2. Chronic interstitial lung disease with new patchy nodular consolidative opacities most pronounced in the lung bases suggestive of a superimposed infectious or inflammatory pneumonitis. ACT 112: Negative or not required by law. The above report was generated using voice recognition software. It may contain grammatical, syntax or spelling errors. Electronically signed by: Robert Madrid M.D. 08/02/2023 7:[address] 08/02/23 06:36 CT chest diagnostic wo con CT DOSE: 224.46 mGy.cm CLINICAL HISTORY: 47 years-old Female with ? ptx. Acute shortness of breath TECHNIQUE: Multiaxial CT images of the chest were performed without contrast. A dose lowering technique was utilized adhering to the principles of ALARA. COMPARISON: Chest radiograph of same day FINDINGS: Unremarkable thyroid. Mediastinal and hilar lymph nodes measuring up to 9-10 mm appears stable. The heart is normal in size. No pericardial effusion or thoracic aortic aneurysm. There is a small right-sided pneumothorax with apical pleural separation 12 mm. Chronic interstitial lung disease redemonstrated with architectural distortion, traction bronchiectasis with reticular interstitial opacities compatible with fibrosis. Superior hilar elevation is noted as well. Patchy nodular consolidative opacities are noted bilaterally with a bibasilar predominant distribution measuring up to 3 cm in the basal left lower lobe on image 194. Stable 6 mm solid nodule in the left lower lobe. Mild associated tree-in-bud/centrilobular nodular opacities. Airways are generally patent. No acute upper abdominal abnormality. Unremarkable soft tissues. No acute fracture. IMPRESSION: 1. Small right-sided pneumothorax. 2. Chronic interstitial lung disease redemonstrated with traction bronchiectasis and architectural distortion. 3. Patchy mid to lower lung zone predominant consolidative, groundglass and centrilobular opacities compatible with a superimposed infectious or inflammatory pneumonitis. 4. Subcentimeter and borderline enlarged mediastinal and hilar lymph nodes are likely reactive. ACT 112: Negative or not required by law. Electronically signed by: Robert Madrid M.D. 08/02/2023 7:47 AM Chest X-Ray 08/02/23 11:50 XR chest 1V portable HISTORY: 47 years-old Female ptx follow-up study in a patient with pneumothorax COMPARISON: Chest CT of same day TECHNIQUE: AP view of the chest FINDINGS: Chronic interstitial lung disease with reticular interstitial fibrosis, bronchiectasis, architectural distortion with superior hilar elevation. Again noted are mild patchy nodular consolidative opacities in the lungs, most pronounced in the lung bases. There is a small right- sided pneumothorax with apical pleural separation of 1.5 cm, unchanged. Bones appear grossly intact. IMPRESSION: 1. Unchanged small right apical pneumothorax 2. Chronic interstitial lung disease with patchy nodular consolidative opacities most pronounced in the lung bases suggestive of a superimposed infectious or inflammatory pneumonitis. ACT 112: Negative or not required by law. The above report was generated using voice recognition software. It may contain grammatical, syntax or spelling errors. Electronically signed by: Robert Madrid M.D. 08/02/2023 12:07 PM Discharge Plan Visit Data Chief Complaint: Shoulder Pain Stated Complaint: L SHOULDER/NECK PAIN ED Provider: Kushal Klein Discharge Problem: Pneumothorax, Interstitial lung disease, Pneumonia Forms Stand Alone Forms: in2nite Prescriptions Prescriptions: No Action methimazole 5 mg tablet 5 mg PO DIRECTED Rx Instructions: half tab once a day metoprolol succinate 25 mg tablet extended release 24 hr 25 mg PO DIRECTED PRN (Reason: heart rate ) Rx Instructions: unable to verify with pharmacy/pt 08/02/23 Referrals Referrals: Reggie Ochoa MD [Primary Care Provider] - Discharge Problem: Pneumothorax Qualifiers: Pneumothorax type: unspecified pneumothorax Qualified Code(s): J93.9 - Pneumothorax, unspecified Pneumonia Qualifiers: Pneumonia type: due to unspecified organism Laterality: right Lung location: u nspecified part of lung Qualified Code(s): J18.9 - Pneumonia, unspecified organism
--- NOTE | 2023-08-02 07:19 | XRay Report ---
XR chest 1V not portable HISTORY: 47 years-old Female similar feelings of when she had spont pneumo acute pain of the mid phil k and left shoulder COMPARISON: Chest radiograph 04/30/2023, chest CT 08/02/2023 and 04/22/2023 TECHNIQUE: AP view of the chest FINDINGS: Chr interstitial lung disease with reticular interstitial fibrosis, bronchiectasis, architectural dis tortion with superior hilar elevation. Additionally, there are new mild patchy nodular consolidative opacities in the lungs, most pronounced in the lung bases. There is a small right-sided pneumothorax with apical pleural separation of 1.8 cm. Bones appear grossly intact. IMPRESSION: 1. Small right-sided pneumothorax with apical pleural separation of 1.8 cm. 2. Chronic interstitial lung disease with new patchy nodular consolidative opacities most pronounced in the lung bases suggestive of a superimposed infectious or inflammatory pneumonitis. ACT 112: Negative or not required by law. The above report was generated using voice recognition software. It may contain grammatical, syntax o r spelling errors. Electronically signed by: Robert Madrid M.D. 08/02/2023 7:16 AM
[2023-08-02 07:48] LABS: Basophils # (auto) 0.06 K/uL (0.00-0.20); Basophils % (auto) 1.2 %; Hemoglobin 13.6 g/dl (12.0-16.0); Immature Granulocytes # (auto) 0.02 K/uL (0.01-0.20); Immature Granulocytes % (auto) 0.4 %; Lymphocytes # (auto) 0.69 K/uL (1.20-3.40); Lymphocytes % (auto) 13.4 %; Mean Corpuscular Hemoglobin 26.3 pg (25.0-34.0); Mean Corpuscular Hgb Conc 32.4 g/dL (32.0-36.0); Mean Corpuscular Volume 81.1 fL (80.0-100.0); Mean Platelet Volume 8.9 fL (9.4-12.4); Monocytes # (auto) 0.46 K/uL (0.11-0.59); Monocytes % (auto) 8.9 %; Neutrophils # (auto) 3.93 K/uL (1.40-6.50); Neutrophils % (auto) 76.1 %; Platelet Count 560 K/uL (130-400); RDW Coefficient of Variation 15.8 % (11.5-14.5); RDW Standard Deviation 46.8 fL (36.4-46.3); Red Blood Count 5.18 M/uL (4.20-5.40); White Blood Count 5.16 K/ul (4.8-10.8)
--- NOTE | 2023-08-02 07:50 | CT Scan Report ---
CT chest diagnostic wo con CT DOSE: 224.46 mGy.cm CLINICAL HISTORY: 47 years-old Female with ? ptx. Acute shortness of breath TECHNIQUE: Multiaxial CT images of the chest were performed without contrast. A dose lowering techni que was utilized adhering to the principles of ALARA. COMPARISON: Chest radiograph of same day FINDINGS: Unremarkable thyroid. Mediastinal and hilar lymph nodes measuring up to 9-10 mm appears sta ble. The heart is normal in size. No pericardial effusion or thoracic aortic aneurysm. There is a small right-sided pneumothorax with apical pleural separation 12 mm. Chronic interstitial lung disease redemonstrated with architectural distortion, traction bronchiectasis with reticular int erstitial opacities compatible with fibrosis. Superior hilar elevation is noted as well. Patchy nodul ar consolidative opacities are noted bilaterally with a bibasilar predominant distribution measuring up to 3 cm in the basal left lower lobe on image 194. Stable 6 mm solid nodule in the left lower lobe . Mild associated tree-in-bud/centrilobular nodular opacities. Airways are generally patent. No acute upper abdominal abnormality. Unremarkable soft tissues. No acute fracture. IMPRESSION: 1. Small right-sided pneumothorax. 2. Chronic interstitial lung disease redemonstrated with traction bronchiectasis and architectural di stortion. 3. Patchy mid to lower lung zone predominant consolidative, groundglass and centrilobular opacities c ompatible with a superimposed infectious or inflammatory pneumonitis. 4. Subcentimeter and borderline enlarged mediastinal and hilar lymph nodes are likely reactive. ACT 112: Negative or not required by law. Electronically signed by: Robert Madrid M.D. 08/02/2023 7:47 AM
[2023-08-02 07:55] LABS: Albumin Globulin Ratio 1.2 (0.9-2); Albumin Level 4.1 gm/dl (3.4-5.0); BUN Creatinine Ratio 25.8 (10-20); Bilirubin,Total 0.6 mg/dl (0.2-1.0); Calcium 9.1 mg/dl (8.6-10.3); Creatinine Clr Calc Pharmacy 88.5 ml/min; Est GFR (African American) 126.2 ml/min; Est GFR (Non-African American) 108.9 ml/min; Globulin 3.4 gm/dl (2.5-4.0); Potassium 4.1 mmol/L (3.5-5.1); Total Protein 7.5 gm/dl (6.0-8.3)
[2023-08-02 08:00] LABS: Troponin I High Sensitivity 3.4 pg/ml (0-14)
[2023-08-02] MEDS: cefTRIAXone SODIUM 2,000 MG/50 ML BAG IV STA (08:12)
[2023-08-02] MEDS: AZITHROMYCIN 500 MG in DEXTROSE 5% 250 ML IV STA (08:15)
[2023-08-02 08:19] LABS: Influenza A virus by PCR Negative (Neg); Influenza B virus by PCR Negative (Neg); RSV by PCR Negative (Neg); SARS CoV2 RNA(COVID-19) Ceph NEGATIVE (Negative)
--- NOTE | 2023-08-02 08:36 | Electrocardiogram Report ---
Test Reason : Blood Pressure : / mmHG Vent. Rate : 090 BPM Atrial Rate : 090 BPM P-R Int : 112 ms QRS Dur : 084 ms QT Int : 370 ms P-R-T Axes : 059 047 059 degrees QTc Int : 452 ms Normal sinus rhythm Minimal voltage criteria for LVH, may be normal variant ( Sokolow-Saab ) Borderline ECG When compared with ECG of 22-APR-2023 14:34, No significant change was found Confirmed by Reggie Mehta ([id number]) on 08/02/2023 8:36:09 AM Referred By: Confirmed By:Reggie Mehta
--- NOTE | 2023-08-02 09:36 | History & Physical Report ---
Date of Service August 02, 2023 Assessment & Plan (1) Pneumothorax: Plan: History of interstitial lung disease and bronchiectasis with prior episode of pneumothorax in April Chest pain since last evening and noted to have a small pneumothorax on the righ t side Remains hemodynamically stable Admitted to telemetry unit Will get pulmonary evaluation-was seen by machine tracer and has had a repeat x- ray which did not show any worsening of pneumothorax and she was advised that she could go home. Will continue current medications She was sent home in the afternoon and she is strongly advised to make an appointment with her machine tracer as an outpatient within 3 to 5 days She will have appointment with PCP in about 7 days (2) Pneumonia: Plan: Recent strep throat and possible influenza about 7 to [address] scan is showing possible pneumonia involving the right lung-mid to lower zone Started on intravenous ceftriaxone and azithromycin (3) Interstitial lung disease: Plan: Has been under care of machine tracer as an outpatient Her Flovent was stopped and given Stiolto by her machine tracer on 07/31/2023 (4) Graves disease: Plan: History of Graves' disease on methimazole Will continue with current medication Paroxysmal tachycardia Has been getting beta-ashley as needed given by the system developer associate manager (5) Bronchiectasis: Plan: History of bronchiectasis DVT prophylaxis Subcu heparin CODE STATUS Full History of Present Illness Chief Complaint: Chest pain since last evening Primary Care Provider: Reggie Ochoa MD She is a 47-year-old female with significant past medical history of interstitial lung disease, Graves' disease, history of pneumothorax and bronchiectasis apparently has had strep throat and flu about 7 to 10 days back and she finished a course of antibiotic with amoxicillin. She has had lots of coughing during that time. Since last evening she has been complaining of pain in the upper chest and adjoining shoulder mainly on the right side specially when she lies down. She has had similar symptoms in April of last year and at that time she was diagnosed with left-sided apical pneumothorax. Wheeze has been clear since then on recent pulmonary visit on 07/31/2023. She denies any fever and or chills and she does not have any more cough. Denies any abdominal pain nausea no vomiting. And does not have any chest pain at rest when she is sitting up without any more shortness of breath. Her chest x-ray did show a small right apical pneumothorax and that was confirmed by CT scan of the chest as well. The CT also showed possible pneumonia involving the right lung and she was started with intravenous antibiotic and was admitted to telemetry unit for continuation of care. Allergies Allergy/AdvReac Type Severity Reaction Status Date / Time No Known Allergies Allergy Verified 07/28/23 09:57 Home Medications Medication Instructions Recorded Confirmed Type methimazole 5 mg tablet 5 mg PO DIRECTED 12/11/22 08/02/23 History metoprolol succinate 25 mg 25 mg PO DIRECTED PRN heart rate 04/22/23 08/02/23 History tablet,extended release 24 hr Past Med/Surg History Medical History (Updated 08/02/23 @ 13:21 by Angel Rader MD) Secondary spontaneous pneumothorax History of COVID-19 06/2021, tested at [facility], not hosp; mild cold symptoms w/fever for 1 day>resolved. BRCA gene mutation negative Ulcerative proctitis hx Graves disease Fibroadenoma of left breast Surgical History H/O right breast biopsy (11/11/22) Needle localization right breast biopsy x2. Dr. Rolle H/O colonoscopy S/P dilation and curettage History of breast biopsy History of colposcopy [place] teeth extracted Family History Mother Breast cancer Aunt Breast cancer Ovarian cancer Family/Other BRCA gene mutation positive Denies family history of Colorectal cancer Uterine cancer Social History (Updated 04/29/23 @ 10:50 by Odessa Walters RN) Smoking Status: Former smoker Tobacco Type: Cigarettes Age Started Using Tobacco: 18; Age Quit Using Tobacco: 24; Cigarettes Per Day: only socially- 5 cigarettes daily then; Second Hand Exposure: Yes (hx-growing up); Do You Dip or Chew Tobacco: No; Hx Alcohol Use: Yes Alcohol type: beer Alcohol Intake Frequency: 2-4 x/Month Hx Substance Use: No Preferred Language: Mongolian Communication Ability: Effective Crude Tester Required: No Beliefs That Will Affect Care: None marital status: Current Living Situation: Spouse and Family current occupational status: unemployed current occupation: [employer] How many Children do You have: 4 Feels Safe at Home: Yes Diet: regular during the past year weight has: remained stable Assistive Devices: Glasses Review of Systems Review of Systems: All systems reviewed and are unremarkable except as noted in H&P Physical Exam Physical Exam: Sitting on the bed without any acute distress Constitutional: + ill appearing and + thin Eyes: PERRL, conjunctivae normal, anicteric sclerae ENMT: external ear and nose normal, oropharynx normal Neck: trachea midline, no thyromegaly Respiratory: no respiratory distress Auscultation: + diminished lung sounds and + crackles (Fine crackles bibasilarly with coarse crackles right base) Cardiovascular: Rate/Rhythm: regular rate and regular rhythm; not tachycardic Heart Sounds: normal S1 and normal S2; no murmur Extremities: no edema Gastrointestinal (Abdomen): Inspection/Auscultation: normal bowel sounds; abdomen not distended Percussion/Palpation: abdomen soft; abdomen nontender Musculoskeletal: No acute arthritis involving any of the joint Neurologic: normal touch/pain/proprioception and moves all extremities; no focal motor deficits Psychiatric: A+Ox3, euthymic affect Lymphatic: no cervical or axillary lymphadenopathy Results & Data Results & Data Vital Signs (Past 12 Hours) Vital Signs Temp Pulse Pulse Resp BP BP Pulse Ox 08/02/23 08:18 84 18 134/84 100 08/02/23 08:10 71 08/02/23 07:48 100 08/02/23 07:21 73 17 98 08/02/23 07:19 77 18 123/80 98 08/02/23 05:06 36.5 C 98 H 18 125/86 96 O2 Del Method O2 Flow Rate 08/02/23 08:18 Non-rebreather 15 08/02/23 08:10 08/02/23 07:48 Non-rebreather 15 08/02/23 07:21 Room Air 08/02/23 07:19 Room Air 08/02/23 05:06 Room Air Laboratory Results Short CBC 08/02/23 Range/Units 07:13 WBC 5.16 (4.8-10.8) K/ul Hgb 13.6 (12.0-16.0) g/dl Hct 42.0 (37.0-47.0) % Plt Count 560 H (130-400) K/uL BMP 08/02/23 07:13 Sodium 139 Potassium 4.1 Chloride 104 Carbon Dioxide 30 BUN 16 Creatinine 0.62 Glucose 94 Calcium 9.1 Liver Function 08/02/23 Range/Units 07:13 Total Bilirubin 0.6 (0.2-1.0) mg/dl AST 13 (13-39) U/L ALT 10 (7-52) U/L Alkaline Phosphatase 73 (34-104) U/L Albumin 4.1 (3.4-5.0) gm/dl Medications Administered Current Inpatient Medications Heparin Sodium (Porcine) (Heparin Sod 5,000 Unit/0.5 Ml Vial) 5,000 units SQ Q12 PALMA Stop: 09/01/23 20:59 Azithromycin 500 mg/ Dextrose 255 mls @ 127.5 mls/hr IV NOW STA Stop: 08/02/23 09:52 Last Admin: 08/02/23 08:15 Dose: 127.5 mls/hr Ceftriaxone Sodium 1,000 mg/ (Dextrose) 50 mls @ 100 mls/hr IV Q24H PALMA; Protocol Stop: 08/08/23 08:29 Code Status & VTE Plan VTE Prophylaxis Plan VTE Prophylaxis will be ordered: Yes (1) Pneumothorax Pneumothorax type: spontaneous, secondary Qualified Code(s): J93.12 - Secondary spontaneous pneumothorax (5) Bronchiectasis Bronchiectasis type: uncomplicated Qualified Code(s): J47.9 - Bronchiectasis, uncomplicated
--- NOTE | 2023-08-02 12:08 | XRay Report ---
XR chest 1V portable HISTORY: 47 years-old Female ptx follow-up study in a patient with pneumothorax COMPARISON: Chest CT of same day TECHNIQUE: AP view of the chest FINDINGS: Chronic interstitial lung disease with reticular interstitial fibrosis, bronchiectasis, architectural distortion with superior hilar elevation. Again noted are mild patchy nodular consolidative opacitie s in the lungs, most pronounced in the lung bases. There is a small right- sided pneumothorax with ap ical pleural separation of 1.5 cm, unchanged. Bones appear grossly intact. IMPRESSION: 1. Unchanged small right apical pneumothorax 2. Chronic interstitial lung disease with patchy nodular consolidative opacities most pronounced in t he lung bases suggestive of a superimposed infectious or inflammatory pneumonitis. ACT 112: Negative or not required by law. The above report was generated using voice recognition software. It may contain grammatical, syntax o r spelling errors. Electronically signed by: Robert Madrid M.D. 08/02/2023 12:07 PM
--- NOTE | 2023-08-02 12:15 | Pulmonary Consultation ---
Date of Consultation August 02, 2023 Assessment & Plan (1) Secondary spontaneous pneumothorax: (2) Interstitial lung disease: Plan 47-year-old female presenting with a right-sided pneumothorax. Her repeat chest x-ray from this afternoon room reveals stability of the small right apical pneumothorax. Think she is stable for discharge home with follow-up with her primary stonecutter apprentice hand, Dr. Mi and thoracic surgery. I think she would benefit from a definitive VATS procedure to prevent recurrence of pneumothorax. She would also benefit from further workup including workup for lymphangioleiomyomatosis, cystic fibrosis, primary survey dyskinesia and other forms of interstitial lung disease. I encouraged her to avoid lifting anything over 5 pounds and any strenuous activity for the next 1 month. Avoid any flights or changes in barometric pressures in the next month. She is to go back to the ER if her symptoms worsen. She does not have evidence of pneumonia at this time. Antibiotics can be discontinued. Thank you for the consult. No further recommendations at this time. Please call with questions. History of Present Illness Reason for Consultation: Pneumothorax History of Present Illness 47-year-old female with a history of ILD and pneumothorax presenting to the ER due to chest pain and shortness of breath. Symptoms started about 1 day before. She had a pneumothorax about 3 months prior. She notes she had a cough about 2 weeks prior. Yesterday she had pleurisy especially when laying down. She is followed by Dr. Mi in the pulmonary clinic and was last seen by him 07/31/2023. He noted at that time that she has bronchiectasis, ILD and a secondary pneumothorax. She had a positive CRISSY but otherwise her antibodies were negative. Evaluation of immunoglobulins were normal and PFTs are relatively unremarkable. He noted that she may need assisted fibrosis workup in the near future and a bronchoscopy. She had a CT of her chest 08/02/2023 upon arrival to the ER which revealed a small right-sided pneumothorax and chronic interstitial lung disease with traction bronchiectasis. Subcentimeter borderline enlarged mediastinal hilar nodes are noted. No prior sputum cultures available for review. PFT 05/30/2023 revealed a mildly declined FEV1 of 76%. Mild air trapping with an RV of 127% and preserved DLCO 118%. Patient was placed on a nonrebreather by the ER due to the pneumothorax. Repeat chest x-ray at 12:07 AM revealed an unchanged small right apical pneumothorax. White blood cell count was unremarkable. She is currently on ceftriaxone and heparin 5000 units twice daily for DVT prophylaxis. She also received a dose of azithromycin in the ER. Respiratory viral panel was negative for COVID, influenza and RSV. White blood cell count was unremarkable. Her last pneumothorax was in April on April 26. She had a left apical basilar pneumo. At that time he was treated with supplemental oxygen and she was ultimately discharged home and followed up with Dr. Mi in the pulmonary clinic. Patient notes some pleurisy when lying flat. She denies any shortness of breath with exertion. She denies any fevers, chills or night sweats. She denies any cough. She is a non-smoker. She does not vape. Allergies Allergy/AdvReac Type Severity Reaction Status Date / Time No Known Allergies Allergy Verified 07/28/23 09:57 Home Medications Medication Instructions Recorded Confirmed Type methimazole 5 mg tablet 5 mg PO DIRECTED 12/11/22 08/02/23 History metoprolol succinate 25 mg 25 mg PO DIRECTED PRN heart rate 04/22/23 08/02/23 History tablet,extended release 24 hr Patient History Medical History (Updated 08/02/23 @ 13:21 by Angel Rader MD) Secondary spontaneous pneumothorax History of COVID-19 06/2021, tested at [facility], not hosp; mild cold symptoms w/fever for 1 day>resolved. BRCA gene mutation negative Ulcerative proctitis hx Graves disease Fibroadenoma of left breast Surgical History H/O right breast biopsy (11/11/22) Needle localization right breast biopsy x2. Dr. Rolle H/O colonoscopy S/P dilation and curettage History of breast biopsy History of colposcopy [place] teeth extracted Family History Mother Breast cancer Aunt Breast cancer Ovarian cancer Family/Other BRCA gene mutation positive Denies family history of Colorectal cancer Uterine cancer Social History (Updated 04/29/23 @ 10:50 by Odessa Walters RN) Smoking Status: Former smoker Tobacco Type: Cigarettes Age Started Using Tobacco: 18; Age Quit Using Tobacco: 24; Cigarettes Per Day: only socially- 5 cigarettes daily then; Second Hand Exposure: Yes (hx-growing up); Do You Dip or Chew Tobacco: No; Hx Alcohol Use: Yes Alcohol type: beer Alcohol Intake Frequency: 2-4 x/Month Hx Substance Use: No Preferred Language: Welsh Communication Ability: Effective Grading Machine Feeder Required: No Beliefs That Will Affect Care: None marital status: Current Living Situation: Spouse and Family current occupational status: unemployed current occupation: [employer] How many Children do You have: 4 Feels Safe at Home: Yes Diet: regular during the past year weight has: remained stable Assistive Devices: Glasses Review of Systems Review of Systems: All systems reviewed & are unremarkable except as noted in HPI & below Physical Exam Physical Exam: Constitutional: Patient appears to be of their stated age. Patient is in no apparent distress. Patient is well-developed. Eyes: Pupils are equal round and reactive to light. Conjunctivae are normal. Anicteric sclera. Ears nose, mouth and throat: Mallampati class 2. Normal posterior oropharynx. Uvula is midline. Neck: Trachea is midline. Visual inspection is normal. Respiratory: Clear to auscultation bilaterally. No use of accessory muscles. No significant clubbing noted. Cardiovascular: Regular rate and rhythm. No murmurs. No edema. Gastrointestinal: Normal bowel sounds, soft, nontender and nondistended. No hepatosplenomegaly noted. Musculoskeletal: No cyanosis. Patient is able to move all extremities. Strength is 5 out of 5 in the upper and lower extremities. Skin: No rashes, warm dry and intact. Neurologic: No obvious focal neurological deficits seen. Psychiatric: Alert and oriented x3 with a euthymic affect. Results & Data Results & Data Vital Signs (Past 12 Hours) Vital Signs Temp Pulse Pulse Resp BP BP Pulse Ox 08/02/23 11:31 76 21 121/71 100 08/02/23 08:18 84 18 134/84 100 08/02/23 08:10 71 08/02/23 07:48 100 08/02/23 07:21 73 17 98 08/02/23 07:19 77 18 123/80 98 08/02/23 05:06 36.5 C 98 H 18 125/86 96 O2 Del Method O2 Flow Rate 08/02/23 11:31 Non-rebreather 15 08/02/23 08:18 Non-rebreather 15 08/02/23 08:10 08/02/23 07:48 Non-rebreather 15 08/02/23 07:21 Room Air 08/02/23 07:19 Room Air 08/02/23 05:06 Room Air PG Care Time/CCT Total # of Minutes Spent Total Time Spent with Patient: Total time spent is greater than 50% in coordination of care (as documented) at patient's floor/unit and/or counseling patient: Coding Level of Care Code 77185 IN/OBS CONSULT LVL 4,60M Diagnoses Secondary spontaneous pneumothorax J93.12 Interstitial lung disease J84.9
[2023-08-02] MEDS ORDERED: METOPROLOL SUCC 25MG EXT REL TAB PO PRN (12:54)
--- OUTSIDE RECORDS SUMMARY | 2023-08-02 12:55 | External Medical Summary | Summary of Care ---
Author Name Unknown Organization [facility] Address [address] [place] [address] Phone [phone] Care Team Providers Care Pest Management Supervisor Name Role Phone Vincent Bedolla MD Primary Care Provider [phone] Reason for Visit * Reason Comments Medication Refill Encounter Details Date Type Department Care Team (Late st Contact Info) Description 07/31/2023 Refill Family Practice [facility] [address] [place] [place] [address] Graciela Shultz DO [address] [facility] [facility] [place] [id number] Graves disease Allergies No known active allergiesdocumented as of this encounter (statuses as of 08/02/2023) Medications Medication Sig Dispensed Refills Start Date End Date Status Fluticasone Propionate HFA 44 MCG/ACT Inhalation AerosolIndication s:Interstitial lung disease (HCC) Inhale 2 Puffs by mouth in the morning and 2 Puffs before bedtime. 10.6 g 1 06/26/2023 Active methIMAzole 5 MG Oral Tablet (Tapazole) take 1 tablet by mouth daily 90 Tablet 3 07/13/2023 Active Amoxicillin 875 MG Oral Tablet Take 1 tablet BY MOUTH every 12 hours for 10 days. 20 Tablet 0 07/17/2023 Active Metoprolol Succinate ER 25 MG Oral Tablet Extended Release 24 Hour (toPROL XL)Indications:Gr aves disease Take 1 Tablet by mouth in the morning. 90 Tablet 3 08/02/2023 Active Metoprolol Succinate ER 25 MG Oral Tablet Extended Release 24 Hour (toPROL XL)Indications:Gr aves disease Take 1 Tablet by mouth in the morning. 30 Tablet 1 01/06/2023 07/31/2023 Discontinued (Refill) documented as of this encounter (statuses as of 08/02/2023) Active Problems Problem Noted Date Diagnosed Date BMI less than 19,adult 05/08/2023 History of pneumothorax 05/07/2023 Interstitial lung disease 05/07/2023 Graves disease 05/09/2011 documented as of this encounter (statuses as of 08/02/2023) Resolved Problems Problem Noted Date Diagnosed Date Resolved Date Palpitations 11/10/2011 11/07/2019 Overview: Acute Routine general medical exam ination at a health care facility 05/09/2011 11/11/2019 Lump or mass in breast 02/13/200305/09 documented as of this encounter (statuses as of 08/02/2023) Immunizations Name Administration Dates Next Due COVID-19 mRNA, LNP-s, No Pre serve, 2-Dose Series (Moderna) 10/13/2020,09/15/2020 Seasonal Influenza, PF, 6 M & above, IM , (FluLaval or Fluzone) 05/07/2022 Seasonal Influenza, Quadriva lent, No Preserve, IM 02/25/2016 Seasonal Influenza, Split, I IV3, With Preserve, Inj 03/15/2018,02/13/2015,03/17/2014, 0 11 TDAP (age 10 and older)(Boostrix) 12/13/2016 TDAP (age 11 and older)(Adacel) 07/02/2008 documented as of this encounter Social History Tobacco Use Types Packs/Day Years Used Date Smoking Tobacco: Former Smokeless Tobacco: Never Comments:quit 20 yewars ago Alcohol Use Standard Drinks/Week Comments Yes 0 (1 standard drink = 0.6 oz pur e alcohol) rare PHQ-2 Answer Date Recorded PHQ-2 Score 0 11/17/2018 Hunger Vital Sign Answer Date Recorded Within the past 12 months, y ou worried that your food would run out before you got the money to buy more. Never true 01/07/20 23 Within the past 12 months, t he food you bought just didn't last and you didn't have money to get more. Never true 01/06/2023 Sex and Gender Information Value Date Recorded Sex Assigned at Female 08/31/2018 5:06 PM EDT Gender Identity Female 08/31/2018 5:06 PM EDT Sexual Orientation Straight 08/31/2018 5 :06 PM EDT Job Start Date Occupation Industry Not on file Not on file Not on file documented as of this encounter Miscellaneous Notes * Telephone Encounter - Jonnathan Alvarado [facility] - 08/02/2023 11:18 AM EST Signed Prescriptions: Disp Refills Metoprolol Succinate ER 25 MG Oral Tablet *90 Tab*3 Sig: Take 1 Tablet by mouth in the morning.Authorizing Provider: VINCENT BEDOLLA User: JONNATHAN ALVARADO documented in this encounter Plan of Treatment Upcoming Encounters Date Type Department Care Team (Late st Contact Info) Description 05/09/2024 10:20 AM EST Office Visit Family Practice [facility] [address] [address] Vincent Bedolla MD [address] [phone] Health Maintenance Due Date Last Done Comments Pneumococcal Vaccine: Pediatrics (0 to 5 Years) and At-Risk Patients (6 to 64 Years) (1 of 2 - PCV) 10/25/1983 HIV Screening 1992 Hepatitis C Screening 10/25/1995 Hepatitis B (1 of 3 - 19+ 3-dose series) 1996 HPV/Co-Test 10/25/2007 Depression Screening 11/18/2019 11/17/2018, 10/20/19 18 Cologuard 2022 Colonoscopy 2022 Colorectal Cancer Screening 2022 Fecal Occult Blood Test 2022 Sigmoidoscopy 2022 COVID-19 Vaccine ( season) 2023 10/13/2020, 09/15/2020 Cervical Cancer Screening 01/24/2024 Pap Smear 01/24/2024 01/23/2021, 08/30, 02/11/2016, Additional history exists Mammogram 05/21/2024 05/21/2023, 09/29, 05/16/2022, Additional history exists Lipid Panel 11/13/2024 11/14/2019, 09/25/2018 DTaP,Tdap,and Td Vaccines (4 - Td or Tdap) 03/11/2027 03/11/2017, 12/13/2016, 07/02/2008 Influenza Vaccine (FLU shot) Completed 08/2022, 05/07/2022, 03/27/2018, Additional history exists GARDASIL-HPV IMMUNIZATION SERIES Aged Out No longer eligible based on patient's age to complete this topic MENINGOCOCCAL (MENACTRA/MENVEO) Aged Out No longer eligible based on patient's age to complete this topic documented as of this encounter Medical Devices Not on filedocumented as of this encounter Visit Diagnoses Diagnosis Graves disease Toxic diffuse goiter without mention of thyrotoxic crisis or storm documented in this encounter Care Teams Pest Management Supervisor Relationship Specialty Start Date End Date Vincent Bedolla MD [address] [facility] [address] [phone] PCP - General Family Medicine 11/11/19 documented as of this encounter
[2023-08-02] MEDS: methIMAzole 5 MG TABLET PO SCH (14:46)
[2023-08-02 15:28] LABS: Thyroid Stimulating Hormone 0.105 uIu/ml (0.300-4.500)
[2023-08-02 16:28] LABS: T4 Free Thyroxine 1.11 ng/dl (0.61-1.60)
[2023-08-02] MEDS ORDERED: HEPARIN SOD 5,000 UNIT/0.5 ML VIAL SQ SCH (21:00)
--- NOTE | 2023-08-03 07:44 | Discharge Summary ---
Date of Service August 03, 2023 Admission HPI Per Admitting Provider She is a 47-year-old female with significant past medical history of interstitial lung disease, Graves' disease, history of pneumothorax and bronchiectasis apparently has had strep throat and flu about 7 to 10 days back and she finished a course of antibiotic with amoxicillin. She has had lots of coughing during that time. Since last evening she has been complaining of pain in the upper chest and adjoining shoulder mainly on the right side specially when she lies down. She has had similar symptoms in April of last year and at that time she was diagnosed with left-sided apical pneumothorax. Wheeze has been clear since then on recent pulmonary visit on 07/31/2023. She denies any fever and or chills and she does not have any more cough. Denies any abdominal pain nausea no vomiting. And does not have any chest pain at rest when she is sitting up without any more shortness of breath. Her chest x-ray did show a small right apical pneumothorax and that was confirmed by CT scan of the chest as well. The CT also showed possible pneumonia involving the right lung and she was started with intravenous antibiotic and was admitted to telemetry unit for continuation of care. Admission Exam Per Admitting Provider Physical Exam: Sitting on the bed without any acute distress Constitutional: + ill appearing and + thin Eyes: PERRL, conjunctivae normal, anicteric sclerae ENMT: external ear and nose normal, oropharynx normal Neck: trachea midline, no thyromegaly Respiratory: no respiratory distress Auscultation: + diminished lung sounds and + crackles (Fine crackles bibasilarly with coarse crackles right base) Cardiovascular: Rate/Rhythm: regular rate and regular rhythm; not tachycardic Heart Sounds: normal S1 and normal S2; no murmur Extremities: no edema Gastrointestinal (Abdomen): Inspection/Auscultation: normal bowel sounds; abdomen not distended Percussion/Palpation: abdomen soft; abdomen nontender Musculoskeletal: No acute arthritis involving any of the joint Neurologic: normal touch/pain/proprioception and moves all extremities; no focal motor deficits Psychiatric: A+Ox3, euthymic affect Lymphatic: no cervical or axillary lymphadenopathy Principal Diagnosis Right small pneumothorax, interstitial lung disease, Graves' disease Discharge Exam Sitting on the bed without any acute distress Constitutional + ill appearing and + thin Eyes PERRL, conjunctivae normal, anicteric sclerae ENMT external ear and nose normal, oropharynx normal Neck trachea midline, no thyromegaly Respiratory no respiratory distress Auscultation: + diminished lung sounds and + crackles (Fine crackles bibasilarly with coarse crackles right base) Cardiovascular Rate/Rhythm: regular rate and regular rhythm; not tachycardic Heart Sounds: normal S1 and normal S2; no murmur Extremities: no edema Gastrointestinal (Abdomen) Inspection/Auscultation: normal bowel sounds; abdomen not distended Percussion/Palpation: abdomen soft; abdomen nontender Neurologic normal touch/pain/proprioception and moves all extremities; no focal motor deficits Psychiatric A+Ox3, euthymic affect Lymphatic no cervical or axillary lymphadenopathy Discharge Data Allergies Allergy/AdvReac Type Severity Reaction Status Date / Time No Known Allergies Allergy Verified 07/28/23 09:57 Consultations 08/02/23 08:28 ED Decision to Admit Stat 08/02/23 09:36 Consult Pulmonology Routine Ordered Studies 08/02/23 06:36 CT chest diagnostic wo con Stat Hospital Course (1) Pneumothorax: History of interstitial lung disease and bronchiectasis with prior episode of pneumothorax in April Chest pain since last evening and noted to have a small pneumothorax on the right side Remains hemodynamically stable Admitted to telemetry unit Will get pulmonary evaluation-was seen by director shopper marketing and has had a repeat x- ray which did not show any worsening of pneumothorax and she was advised that she could go home. Will continue current medications She was sent home in the afternoon and she is strongly advised to make an appointment with her director shopper marketing as an outpatient within 3 to 5 days She will have appointment with PCP in about 7 days (2) Pneumonia: Recent strep throat and possible influenza about 7 to [address] scan is showing possible pneumonia involving the right lung-mid to lower zone Started on intravenous ceftriaxone and azithromycin (3) Interstitial lung disease: Has been under care of director shopper marketing as an outpatient Her Flovent was stopped and given Stiolto by her director shopper marketing on 07/31/2023 (4) Graves disease: History of Graves' disease on methimazole Will continue with current medication Paroxysmal tachycardia Has been getting beta-ashley as needed 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 No extraneous activity Non-emergency contact: Primary Care Provider Call non-emergency contact if: you have any medication questions and your symptoms worsen Follow-up/Referrals: Reggie Ochoa MD [Primary Care Provider] - (Your doctor's office will call you with an appointment within 7 days) Diet: Regular Addtl Attending Provider Instructions: You can take ibuprofen to control pain Try to avoid any cough and can try [id number] cough medicine as needed Please keep appointment with the healthcare providers Please make an appointment with Dr. Mack within 3 to 5 days Come to the ER for any worsening symptoms of pain and shortness of breath Pending Studies at Discharge: No Stand-Alone Forms: [employer], Smoking Cessation Medications and DC Order Prescriptions: Continued methimazole 5 mg tablet 5 mg PO DIRECTED Rx Instructions: half tab once a day metoprolol succinate 25 mg tablet extended release 24 hr 25 mg PO DIRECTED PRN (Reason: heart rate ) Rx Instructions: unable to verify with pharmacy/pt 08/02/23 Discharge Orders: Discharge Order (Routine); Ordered 08/02/23 Ordered By: Olivia Garcia Admission Data Admit Date/Time: 08/02/23 09:20 Attending Provider: Olivia Garcia Admit Provider: Olivia Garcia Primary Care Provider: Reggie Ochoa Other Providers: Olivia Garcia; Angel Rader Other Interventions: Discharge Summary Assessment (RN) Last Done: 08/02/23 17:36
[2023-08-03] MEDS ORDERED: cefTRIAXone SODIUM 1,000 MG in DEXTROSE 5 % MINI-B 50 ML IV SCH (08:00)
[2023-08-03] MEDS ORDERED: TIOTROPIUM BR/OLODATEROL HCL INHALER INH SCH (09:00)
== END 2023-08-02 17:40 | disposition home or self-care (01) | DRG 199 ==
LOC: ED 05:02 → EDINP 09:20 → INTOOBSV 09:20 → EDINP 12:55